=== PATIENT | female | born 2005 | race Hispanic/Latino ===

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

== ENCOUNTER 2023-01-12 07:51 | Emergency (ER) | payer BC ==
[2023-01-12] MEDS ORDERED: diphenhydrAMINE 12.5 MG/5 ML UDCUP ONE (08:23)
[2023-01-12] MEDS ORDERED: Prochlorperazine 10 MG/2 ML VIAL ONE (08:23)
[2023-01-12] MEDS ORDERED: Ketorolac Tromethamine 30 MG/ML VIAL ONE (08:23)
[2023-01-12] MEDS ORDERED: Lactated Ringer's 1,000 ML ONE (08:23)
[2023-01-12 08:25] LABS: Pregnancy Test - Urine (BHCG) Negative (Negative); Specific Gravity 1.021 (1.002-1.036)
[2023-01-12 08:26] LABS: Pregu Control Background? CLEAR/WHITE (CLR/WHITE); Pregu Control Bar Appear? YES (CONTROL BAR)
[2023-01-12] MEDS ORDERED: diphenhydrAMINE 50 MG/ML VIAL ONE (08:26)
== END 2023-01-12 09:18 | disposition home or self-care (01) ==
LOC: MADERS 07:51
DX: R51.9 Headache, unspecified (principal); F17.290 Nicotine dependence, other tobacco product, uncomplicated
CPT/HCPCS: 81025; 96374; 96375; J0780; J1200; J1885; J7120; Q0163

== ENCOUNTER 2023-08-16 11:34 | Emergency (ER) | payer BC, SELFPAY ==
[2023-08-16] MEDS ORDERED: Acetaminophen 500 MG TAB ONE (11:59)
[2023-08-16] MEDS ORDERED: Ibuprofen 800 MG TAB ONE (11:59)
[2023-08-16 12:27] LABS: Pregnancy Test - Urine (BHCG) Negative (Negative); Pregu Control Background? CLEAR/WHITE (CLR/WHITE); Pregu Control Bar Appear? YES (CONTROL BAR); Specific Gravity 1.017 (1.002-1.036)
== END 2023-08-16 12:50 | disposition home or self-care (01) ==
LOC: MADERS 11:34
DX: J06.9 Acute upper respiratory infection, unspecified (principal); F17.290 Nicotine dependence, other tobacco product, uncomplicated
CPT/HCPCS: 81025; 87635; 87804; 93005; 94760

== ENCOUNTER 2024-01-12 11:25 | Emergency (ER) | payer OTHER ==
[2024-01-12] MEDS ORDERED: Amoxicillin/Potassium Clav 875 MG TAB ONE (12:28)
[2024-01-12] MEDS ORDERED: Boostrix 0.5 ML (Tdap) VIAL (>/=7 yrs of age) ONE (12:28)
[2024-01-12] MEDS ORDERED: Bacitracin 1 PK ONE (12:41)
== END 2024-01-12 12:47 | disposition home or self-care (01) ==
LOC: MADERS 11:25
DX: S80.811A Abrasion, right lower leg, initial encounter (principal); S80.812A Abrasion, left lower leg, initial encounter; F17.290 Nicotine dependence, other tobacco product, uncomplicated; W55.03XA Scratched by cat, initial encounter
CPT/HCPCS: 90471; 90715

== ENCOUNTER 2024-03-18 00:10 | Emergency (ER) | payer OTHER ==
[2024-03-18 01:01] LABS: Bilirubin Negative (Negative); Blood, Urine Trace (Negative); Clarity Clear (Clear); Glucose, Urine (Dipstick) Negative (Negative); Ketone, Urine Negative (Negative); Leukocyte Negative (Negative); Nitrite Negative (Negative); Protein, Urine (Dipstick) Negative (Neg-Trace); Specific Gravity, Urine 1.025 (1.005-1.030); Urobilinogen 0.2 mg/dL (Less than 2)
[2024-03-18 01:09] LABS: CAUTI Indications for Culture Dysuria,urgency,freq; WBC/HPF None Seen HPF (0-3)
[2024-03-18 01:10] LABS: Pregnancy Test - Urine (BHCG) Negative (Negative); Pregu Control Background? CLEAR/WHITE (CLR/WHITE); Pregu Control Bar Appear? YES (CONTROL BAR); Specific Gravity 1.025 (1.002-1.036); Urine Culture Reflex No No
== END 2024-03-18 01:20 | disposition home or self-care (01) ==
LOC: MADERS 00:10
DX: B34.9 Viral infection, unspecified (principal); F17.290 Nicotine dependence, other tobacco product, uncomplicated; Z55.6 Problems related to health literacy
CPT/HCPCS: 81001; 81025; 99284

== ENCOUNTER 2024-04-13 21:54 | Emergency (ER) | payer OTHER | END 2024-04-13 22:27 | disposition home or self-care (01) | LOC: MADERS 21:54 | DX: J01.90 Acute sinusitis, unspecified (principal); F17.290 Nicotine dependence, other tobacco product, uncomplicated | CPT/HCPCS: 99283 ==

== ENCOUNTER 2024-07-12 23:23 | Emergency (ER) | payer OTHER ==
[2024-07-13] MEDS ORDERED: Ondansetron ODT 4 MG TAB ONE (00:14)
== END 2024-07-13 00:20 | disposition home or self-care (01) ==
LOC: MADERS 23:23
DX: J06.9 Acute upper respiratory infection, unspecified (principal); R11.10 Vomiting, unspecified; F17.290 Nicotine dependence, other tobacco product, uncomplicated
CPT/HCPCS: 87081; 87428; 87430; 99284; Q0162

== ENCOUNTER 2024-08-10 00:44 | Emergency (ER) | payer OTHER ==
[2024-08-10] MEDS ORDERED: Ondansetron ODT 4 MG TAB ONE (01:02)
== END 2024-08-10 01:05 | disposition home or self-care (01) ==
LOC: MADERS 00:44
DX: B34.9 Viral infection, unspecified (principal); F17.290 Nicotine dependence, other tobacco product, uncomplicated
CPT/HCPCS: 99283; Q0162

== ENCOUNTER 2024-09-08 20:31 | Emergency (ER) | payer OTHER ==
[2024-09-08] MEDS ORDERED: Ondansetron ODT 4 MG TAB ONE (21:33)
== END 2024-09-08 21:45 | disposition home or self-care (01) ==
LOC: MADERS 20:31
DX: J06.9 Acute upper respiratory infection, unspecified (principal); F17.210 Nicotine dependence, cigarettes, uncomplicated
CPT/HCPCS: 99283; Q0162

== ENCOUNTER 2025-02-14 18:32 | Emergency (ER) | payer OTHER | END 2025-02-14 19:04 | disposition home or self-care (01) | LOC: MADERS 18:32 | DX: L03.012 Cellulitis of left finger (principal); F17.290 Nicotine dependence, other tobacco product, uncomplicated | CPT/HCPCS: 99281 ==

== ENCOUNTER 2025-03-09 19:04 | Emergency (ER) | payer OTHER ==
[2025-03-09 20:03] LABS: Pregnancy Test - Urine (BHCG) Negative (Negative); Pregu Control Background? CLEAR/WHITE (CLR/WHITE); Pregu Control Bar Appear? YES (CONTROL BAR)
[2025-03-09 20:16] LABS: #Basophils 0.1 thou/uL (0.0-0.2); #Eosinophils 0.4 thou/uL (0.0-0.7); #Lymphocytes 1.7 thou/uL (1.20-3.40); #Monocytes 0.3 thou/uL (0.11-0.59); #Neutrophils 4.0 thou/uL (1.40-6.50); %Basophils 0.8 % (0.0-1.0); %Eosinophils 6.6 % (0.0-10.0); %Lymphocytes 26.4 % (21.0-51.0); %Monocytes 4.1 % (0.0-10.0); %Neutrophils 62.2 % (42.0-75.0); Hematocrit 44.2 % (36.0-47.0); Hemoglobin 15.1 g/dL (12.0-16.0); Mean Corpuscular Hemoglobin 31.2 pg (27.0-31.0); Mean Corpuscular Volume 91.4 fl (78.0-98.0); Platelet Count 372 10x3/uL (130-400); Red Blood Cell (RBC) Count 4.84 mill/uL (4.20-5.40); White Blood Cell (WBC) Count 6.4 10x3/uL (4.8-10.8)
[2025-03-09 20:33] LABS: ALT (SGPT) 11 U/L (Less than 34); AST (SGOT) 25 U/L (11-34); Albumin 4.6 g/dL (3.1-4.5); Alkaline Phosphatase 62 U/L (40-110); Anion Gap 17 mmol/L (10-20); BUN (Urea Nitrogen) 7 mg/dL (7.0-18.7); Bilirubin, Total 1.1 mg/dL (0.3-1.2); Calc. Creatinine Clearance 0 mL/min (70-130); Carbon Dioxide 20 mmol/L (22-29); Chloride 109 mmol/L (98-107); Globulin 3.7 g/dL (2.4-3.5); Glucose 81 mg/dL (70-105); Potassium 3.6 mmol/L (3.5-5.1); Sodium 142 mmol/L (136-145)
[2025-03-09 20:34] LABS: Calcium 9.3 mg/dL (7.8-10.44)
== END 2025-03-09 21:20 | disposition home or self-care (01) ==
LOC: MADERS 19:04
DX: R55 Syncope and collapse (principal); R05.9 Cough, unspecified; F17.290 Nicotine dependence, other tobacco product, uncomplicated
CPT/HCPCS: 80053; 81025; 85025; 87426; 93005; 96360; J7030

== ENCOUNTER 2025-03-22 17:28 | Emergency (ER) | payer OTHER | END 2025-03-22 18:44 | disposition home or self-care (01) | LOC: MADERS 17:28 | DX: J06.9 Acute upper respiratory infection, unspecified (principal); F17.290 Nicotine dependence, other tobacco product, uncomplicated | CPT/HCPCS: 87081; 87428; 87430; 99283 ==

== ENCOUNTER 2025-03-25 07:40 | Emergency (ER) | payer OTHER | END 2025-03-25 08:00 | disposition home or self-care (01) | LOC: MADERS 07:40 | DX: J06.9 Acute upper respiratory infection, unspecified (principal); F17.290 Nicotine dependence, other tobacco product, uncomplicated | CPT/HCPCS: 99283 ==

== ENCOUNTER 2025-05-27 08:51 | Emergency (ER) | payer OTHER ==
[2025-05-27] MEDS ORDERED: Ketorolac Tromethamine 30 MG (1 mL) VIAL ONE (09:15)
[2025-05-27] MEDS ORDERED: Ondansetron PF 4 MG/2 ML Vial ONE (09:15)
[2025-05-27 09:40] LABS: #Basophils 0.1 thou/uL (0.0-0.2); #Eosinophils 0.6 thou/uL (0.0-0.7); #Lymphocytes 1.8 thou/uL (1.20-3.40); #Monocytes 0.5 thou/uL (0.11-0.59); #Neutrophils 5.5 thou/uL (1.40-6.50); %Basophils 1.7 % (0.0-1.0); %Eosinophils 6.9 % (0.0-10.0); %Lymphocytes 21.4 % (21.0-51.0); %Monocytes 5.7 % (0.0-10.0); %Neutrophils 64.3 % (42.0-75.0); Hematocrit 42.3 % (36.0-47.0); Hemoglobin 13.8 g/dL (12.0-16.0); Mean Corpuscular Hemoglobin 31.0 pg (27.0-31.0); Mean Corpuscular Volume 95.3 fl (78.0-98.0); Platelet Count 363 10x3/uL (130-400); Red Blood Cell (RBC) Count 4.44 mill/uL (4.20-5.40); White Blood Cell (WBC) Count 8.5 10x3/uL (4.8-10.8)
[2025-05-27 09:51] LABS: ALT (SGPT) 13 U/L (Less than 34); AST (SGOT) 13 U/L (11-34); Albumin 4.6 g/dL (3.1-4.5); Alkaline Phosphatase 67 U/L (40-110); Anion Gap 17 mmol/L (10-20); BUN (Urea Nitrogen) 10 mg/dL (7.0-18.7); Bilirubin, Total 0.5 mg/dL (0.3-1.2); Calc. Creatinine Clearance 0 mL/min (70-130); Calcium 8.8 mg/dL (7.8-10.44); Carbon Dioxide 19 mmol/L (22-29); Chloride 108 mmol/L (98-107); Globulin 3.3 g/dL (2.4-3.5); Glucose 77 mg/dL (70-105); Potassium 3.8 mmol/L (3.5-5.1); Sodium 140 mmol/L (136-145)
== END 2025-05-27 11:20 | disposition home or self-care (01) ==
LOC: MADERS 08:51
DX: B34.9 Viral infection, unspecified (principal); F17.290 Nicotine dependence, other tobacco product, uncomplicated
CPT/HCPCS: 80053; 85025; 87428; 96361; 96374; 96375; J1885; J2405; J7030